=== PATIENT | male | born 1960 | race Caucasian/White ===

== ENCOUNTER 2023-07-01 19:06 | Outpatient (CLI) | payer BC, SELFPAY ==
[2023-07-01 21:12] LABS: Microalbumin/Creatinine Ratio 53.3
[2023-07-01 21:13] LABS: Creatinine,Urine Random 159 mg/dL (Not Estab.)
== END 2023-07-01 23:59 ==
LOC: LAB.DROPOF 19:06
PROVIDERS: PCP Nurse Practitioner; Visit Provider Nurse Practitioner
DX: R81 Glycosuria (principal); Z00.00 Encounter for general adult medical examination without abnormal findings; Z13.1 Encounter for screening for diabetes mellitus; Z13.220 Encounter for screening for lipoid disorders; Z13.29 Encounter for screening for other suspected endocrine disorder; Z12.5 Encounter for screening for malignant neoplasm of prostate
CPT/HCPCS: 82043; 82570